=== PATIENT | female | born 1935 | race Caucasian/White ===

== ENCOUNTER 2023-01-11 09:11 | Emergency (ER) | payer MEDICARE, SELFPAY ==
[2023-01-11 09:23] VITALS: BP 141/66; PULSE 75; RESP 16; TEMP 37.2; O2SAT 97
--- NOTE | 2023-01-11 09:57 | ED.URI ---
HPI - URI/Sore Throat General Chief Complaint: Upper Respiratory Infection Stated Complaint: cold Time Seen by Provider: 01/11/23 09:43 Source: patient Mode of arrival: ambulatory Limitations: no limitations History of Present Illness HPI Narrative: Patient presents today with a 4 day history nasal congestion, sore throat, and sinus pressure, right ear pressure. Reports the right ear pressure has been worse over the last 2 days causing decreased hearing. Patient was seen 3 days ago in the ER at [facility] in [place] and was diagnosed with a URI. She was told to take Coricidin HBP and Tylenol, which he has been doing. States symptoms have not been improving. Denies cough, fever, shortness of breath. Related Data Home Medications Medication Instructions Recorded Confirmed amlodipine 5 mg tablet 2.5 mg PO DAILY 04/26/20 01/11/23 clopidogrel 75 mg tablet 75 mg PO DAILY 04/26/20 01/11/23 ezetimibe 10 mg tablet (Zetia) 10 mg PO DAILY 04/26/20 01/11/23 telmisartan 20 mg tablet (Micardis) 20 mg PO DAILY 04/26/20 01/11/23 atorvastatin 10 mg tablet 10 mg PO .QWEEKLY 10/25/20 01/11/23 polyvinyl alcohol-povidone (PF) 1 - 2 drp EACH EYE TID 04/24/22 01/11/23 1.4 %-0.6 % eye drops in a dropperette (Refresh Classic (PF)) Allergies Allergy/AdvReac Type Severity Reaction Status Date / Time amlodipine Allergy Unknown Nausea Verified 01/11/23 09:19 fluconazole Allergy Unknown unknown Verified 01/11/23 09:19 levofloxacin Allergy Unknown unknown Verified 01/11/23 09:19 nitrofurantoin Allergy Unknown unknown Verified 01/11/23 09:19 prednisone Allergy Unknown unknown Verified 01/11/23 09:19 Sulfa (Sulfonamide Allergy Unknown unknown Verified 01/11/23 09:19 Antibiotics) Review of Systems Review of Systems: CONSTITUTIONAL: Denies body aches, fever, chills, or sweats. EYES: Denies visual changes, redness, or discharge. ENT: Denies rhinorrhea, otalgia.+ sore throat, congestion, sinus pressure, right ear pressure with decreased hearing CARDIOVASCULAR: Denies chest pain, palpitations, or edema. RESPIRATORY: Denies cough or dyspnea. GASTROINTESTINAL: Denies abdominal pain, nausea, vomiting, or diarrhea. GENITOURINARY: Denies dysuria or hematuria. SKIN: Denies rash, itching, or wounds. MUSCULOSKELETAL: Denies back pain, joint pain, or myalgia. NEUROLOGIC: Denies headache, numbness, tingling, or weakness. PSYCH: Denies depression or anxiety. 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 Please see nursing chart for further information. There is no relevant family history pertinent to the presenting complaint Exam Narrative: GENERAL: Well-appearing, well-nourished, and in no acute distress. HEAD: Normocephalic, atraumatic. EYES: EOMI. No redness or drainage. Conjunctivae normal. ENT: Mucous membranes pink and moist. Nares congested. No rhinorrhea. Left TM normal. Right TM well with clear fluid effusion without evidence of bacterial infection. Throat erythematous without edema or exudate. Uvula midline.
== END 2023-01-11 10:04 | disposition home or self-care (01) ==
PROVIDERS: Emergency Provider Nurse Practitioner
DX: H65.01 Acute serous otitis media, right ear (principal); J06.9 Acute upper respiratory infection, unspecified; Z87.891 Personal history of nicotine dependence; I10 Essential (primary) hypertension; Z86.73 Personal history of transient ischemic attack (TIA), and cerebral infarction without residual deficits; Z98.42 Cataract extraction status, left eye; Z98.41 Cataract extraction status, right eye; Z95.1 Presence of aortocoronary bypass graft
CPT/HCPCS: 99211; G0463

== ENCOUNTER → 2023-02-25 08:54 | Outpatient (CLI) | payer MEDICARE, SELFPAY ==
--- NOTE | ~2023-02-25 | MR_ITS ---
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 TECHNIQUE: Magnetic resonance imaging (MRI) of the brain, brainstem, and internal auditory canals was performed without and with 10 mL MultiHance intravenous contrast. COMPARISON: None. FINDINGS: There are scattered areas of nonspecific increased T2-weighted signal intensity in the cere bral white matter and joshua, which is within normal limits for the patient's age. There is an old lacu rosaura infarct in the left thalamus. There is no intracranial hemorrhage, acute infarction, or abnormal intracranial mass lesion. The ventricles are normal in size. The paranasal sinuses are clear. There a re likely changes of ocular lens replacement surgeries. The internal auditory canals and inner and mi ddle ears are normal. The mastoid air cells are normal. IMPRESSION: 1. 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 Reviewed, dictated and finalized at location A.
== END ==
PROVIDERS: PCP Nurse Practitioner Family; Visit Provider Otolaryngology
DX: H92.21 Otorrhagia, right ear (principal)
CPT/HCPCS: 70553; A9577

== ENCOUNTER 2023-07-26 17:10 | Emergency (ER) | payer MEDICARE, SELFPAY ==
[2023-07-26 17:47] VITALS: BP 161/82; PULSE 91; RESP 18; TEMP 36.7; O2SAT 99
--- NOTE | 2023-07-26 18:33 | ED.FEMALEGU ---
HPI - Female Genitourinary General Chief complaint: Urogenital-Female Stated complaint: uti symptoms Time Seen by Provider: 07/26/23 18:20 Source: patient, family ([id number]) and RN notes reviewed Mode of arrival: ambulatory Limitations: no limitations History of Present Illness HPI Narrative: Patient presents today complaining of urinary frequency and dysuria that started approximately 4 hours prior to arrival. Denies any additional symptoms to include abdominal pain, back pain. She has not tried any [id number] medication for symptoms prior to arrival. Related Data Home Medications Medication Instructions Recorded Confirmed amlodipine 5 mg tablet 2.5 mg PO DAILY 04/26/20 01/11/23 clopidogrel 75 mg tablet 75 mg PO DAILY 04/26/20 01/11/23 ezetimibe 10 mg tablet (Zetia) 10 mg PO DAILY 04/26/20 01/11/23 telmisartan 20 mg tablet (Micardis) 20 mg PO DAILY 04/26/20 01/11/23 atorvastatin 10 mg tablet 10 mg PO .QWEEKLY 10/25/20 01/11/23 polyvinyl alcohol-povidone (PF) 1 - 2 drp EACH EYE TID 04/24/22 01/11/23 1.4 %-0.6 % eye drops in a dropperette (Refresh Classic (PF)) Allergies Allergy/AdvReac Type Severity Reaction Status Date / Time amlodipine Allergy Unknown Nausea Verified 01/11/23 09:19 azithromycin Allergy Unknown Unknown Verified 07/26/23 18:38 cephalexin Allergy Unknown Unknown Verified 07/26/23 18:38 ciprofloxacin Allergy Unknown Unknown Verified 07/26/23 18:38 fenofibrate Allergy Unknown Unknown Verified 07/26/23 18:38 fluconazole Allergy Unknown unknown Verified 01/11/23 09:19 levofloxacin Allergy Unknown unknown Verified 01/11/23 09:19 metoprolol Allergy Unknown Unknown Verified 07/26/23 18:38 nitrofurantoin Allergy Unknown unknown Verified 01/11/23 09:19 prednisone Allergy Unknown unknown Verified 01/11/23 09:19 [id number] Reductase Allergy Unknown Unknown Verified 07/26/23 18:38 Inhibitor Sulfa (Sulfonamide Allergy Unknown unknown Verified 01/11/23 09:19 Antibiotics) amlodipine Allergy Unknown Unknown Uncoded 07/26/23 18:38 Review of Systems Review of Systems: CONSTITUTIONAL: Denies body aches, fever, chills, or sweats. EYES: Denies visual changes, redness, or discharge. ENT: Denies rhinorrhea, congestion, sore throat, or otalgia. CARDIOVASCULAR: Denies chest pain, palpitations, or edema. RESPIRATORY: Denies cough or dyspnea. GASTROINTESTINAL: Denies abdominal pain, nausea, vomiting, or diarrhea. GENITOURINARY: + dysuria, frequency SKIN: Denies rash, itching, or wounds. MUSCULOSKELETAL: Denies back pain, joint pain, or myalgia. NEUROLOGIC: Denies headache, numbness, tingling, or weakness. PSYCH: Denies depression or anxiety. 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 Please see nursing chart for further information. There is no relevant family history pertinent to the presenting complaint Exam Narrative: GENERAL: Well-appearing, well-nourished, and in no acute distress. HEAD: Normocephalic, atraumatic. EYES: EOMI. No redness or drainage. Conjunc
== END 2023-07-26 18:44 | disposition home or self-care (01) ==
PROVIDERS: Emergency Provider Nurse Practitioner; PCP Family Medicine
DX: N30.01 Acute cystitis with hematuria (principal); Z87.891 Personal history of nicotine dependence; I10 Essential (primary) hypertension; Z98.42 Cataract extraction status, left eye; Z98.41 Cataract extraction status, right eye; Z95.1 Presence of aortocoronary bypass graft; Z86.73 Personal history of transient ischemic attack (TIA), and cerebral infarction without residual deficits
CPT/HCPCS: 81003; 87077; 87086; 87186; 99213; G0463

== ENCOUNTER 2023-08-12 14:24 | Emergency (ER) | payer MEDICARE, SELFPAY ==
[2023-08-12 14:44] VITALS: BP 147/81; PULSE 76; RESP 16; TEMP 36.9; O2SAT 100
--- NOTE | 2023-08-12 15:30 | ED.FEMALEGU ---
HPI - Female Genitourinary General Chief complaint: Urogenital-Female Stated complaint: Female Urogenital Source: patient and RN notes reviewed Mode of arrival: ambulatory Limitations: no limitations History of Present Illness HPI Narrative: 87 y/o female presented for complaint of burning with urination. Also reports burning sensation is constant, and had one urinary incontinent episode. Onset today. Last uti 07/26/23. Denies abdominal pain, flank pain, hematuria, nausea, vomiting diarrhea, fevers or chills. Patient presented with daughter, denies confusion. Related Data Home Medications Medication Instructions Recorded Confirmed amlodipine 5 mg tablet 2.5 mg PO DAILY 04/26/20 08/12/23 clopidogrel 75 mg tablet 75 mg PO DAILY 04/26/20 08/12/23 ezetimibe 10 mg tablet (Zetia) 10 mg PO DAILY 04/26/20 08/12/23 telmisartan 20 mg tablet (Micardis) 20 mg PO DAILY 04/26/20 08/12/23 atorvastatin 10 mg tablet 10 mg PO .QWEEKLY 10/25/20 08/12/23 polyvinyl alcohol-povidone (PF) 1 - 2 drp EACH EYE TID 04/24/22 08/12/23 1.4 %-0.6 % eye drops in a dropperette (Refresh Classic (PF)) Allergies Allergy/AdvReac Type Severity Reaction Status Date / Time amlodipine Allergy Unknown Nausea Verified 08/12/23 14:47 azithromycin Allergy Unknown Unknown Verified 08/12/23 14:47 cephalexin Allergy Unknown Unknown Verified 08/12/23 14:47 ciprofloxacin Allergy Unknown Unknown Verified 08/12/23 14:47 fenofibrate Allergy Unknown Unknown Verified 08/12/23 14:47 fluconazole Allergy Unknown unknown Verified 08/12/23 14:47 levofloxacin Allergy Unknown unknown Verified 08/12/23 14:47 metoprolol Allergy Unknown Unknown Verified 08/12/23 14:47 nitrofurantoin Allergy Unknown unknown Verified 08/12/23 14:47 prednisone Allergy Unknown unknown Verified 08/12/23 14:47 [id number]-[id number] Reductase Allergy Unknown Unknown Verified 08/12/23 14:47 Inhibitor Sulfa (Sulfonamide Allergy Unknown unknown Verified 08/12/23 14:47 Antibiotics) amlodipine Allergy Unknown Unknown Uncoded 08/12/23 14:47 Review of Systems Review of Systems: CONSTITUTIONAL: Denies body aches, fever, chills, or sweats. CARDIOVASCULAR: Denies chest pain, palpitations, or edema. RESPIRATORY: Denies cough or dyspnea. GASTROINTESTINAL: Denies abdominal pain, nausea, vomiting, or diarrhea. GENITOURINARY: Reports dysuria, denies frequency, urgency, hematuria, flank pain SKIN: Denies rash, itching, or wounds. MUSCULOSKELETAL: Denies back pain or myalgia. [facility] Past Medical History Medical History Back pain Cataracts, bilateral Hypertension Nontoxic multinodular goiter Stroke 03/21/19 Surgical History Surgical History H/O heart bypass surgery 12/21/14, open heart surgery for triple bypass History of eye surgery 10/10/14, right eye to remove cataracts 11/07/14, left eye, to remove cataracts 12/23/18, bilateral laser surgery for glaucoma Family History Family History Other Cerebrovascular accident Hypertension Social History Social History Smoking status: Former smoker Alcohol intake: never Substance use: never Comments At time of signature, I have reviewed and agree with nursing past medical, surgical, social and family history unless otherwise noted. Please see nursing chart for further information. There is no relevant family history pertinent to the presenting complaint Exam Narrative: GENERAL: Well-appearing and in no acute distress. HEAD: Normocephalic EYES: EOMI. . ENT: Mucous membranes pink and moist. NECK: Normal AROM. Supple. CHEST: No respiratory distress. Clear to auscultation. HEART: Regular rate and rhythm. ABDOMEN: Soft, nontender, nondistended, normal active bowel sounds. No CVA tenderness SKIN: Warm, dry, no antionette
== END 2023-08-12 15:45 | disposition home or self-care (01) ==
PROVIDERS: Emergency Provider Nurse Practitioner Family; PCP Nurse Practitioner
DX: N39.0 Urinary tract infection, site not specified (principal); I10 Essential (primary) hypertension; Z86.73 Personal history of transient ischemic attack (TIA), and cerebral infarction without residual deficits; Z95.1 Presence of aortocoronary bypass graft; Z98.42 Cataract extraction status, left eye; Z98.41 Cataract extraction status, right eye; Z87.891 Personal history of nicotine dependence
CPT/HCPCS: 81003; 87077; 87086; 87186; 99213; G0463